=== PATIENT | female | born 1955 | race Caucasian/White ===

== ENCOUNTER → 2017-03-16 | Outpatient (CLI) | payer OTHER | LOC: MC.RAD 10:59 | DX: Z12.31 Encounter for screening mammogram for malignant neoplasm of breast (principal) ==

== ENCOUNTER → 2017-08-02 | Outpatient (CLI) | payer BC, OTHER | LOC: COL.RAD 07:41 | DX: K21.9 Gastro-esophageal reflux disease without esophagitis (principal); K22.4 Dyskinesia of esophagus; K44.9 Diaphragmatic hernia without obstruction or gangrene ==

== ENCOUNTER → 2018-04-29 | Outpatient (CLI) | payer BC | LOC: MC.RAD 08:00 | DX: Z12.31 Encounter for screening mammogram for malignant neoplasm of breast (principal) ==

== ENCOUNTER → 2018-07-17 | Outpatient (CLI) | payer BC | LOC: COL.RAD 09:32 | DX: G93.9 Disorder of brain, unspecified (principal) | CPT/HCPCS: A9585 ==

== ENCOUNTER → 2019-05-06 | Outpatient (CLI) | payer BC | LOC: MC.RAD 08:43 | DX: Z12.31 Encounter for screening mammogram for malignant neoplasm of breast (principal) ==

== ENCOUNTER → 2020-01-12 | Outpatient (CLI) | payer BC | LOC: COL.RAD 11:54 | DX: D32.9 Benign neoplasm of meninges, unspecified (principal); R90.82 White matter disease, unspecified | CPT/HCPCS: A9585 ==

== ENCOUNTER → 2020-05-31 | Outpatient (CLI) | payer BC | LOC: MC.RAD 05-07 14:00 | DX: Z12.31 Encounter for screening mammogram for malignant neoplasm of breast (principal) ==

== ENCOUNTER → 2021-06-09 | Outpatient (CLI) | payer BC | LOC: MC.RAD 08:49 | DX: Z12.31 Encounter for screening mammogram for malignant neoplasm of breast (principal) ==

== ENCOUNTER → 2023-06-14 | Outpatient (CLI) | payer MEDICARE | LOC: MC.RAD 09:07 | DX: Z12.31 Encounter for screening mammogram for malignant neoplasm of breast (principal) ==

== ENCOUNTER → 2023-09-21 | Emergency (ER) | payer MEDICARE ==
[~2023-09-21] VITALS: Ht 154.9 cm; Wt 69.1 kg
[2023-09-21 16:08] VITALS: BP 130/78; TEMP 98.1
[2023-09-21 16:58] VITALS: PULSE 73
== END ==
LOC: COL.ER 16:03
DX: S93.401A Sprain of unspecified ligament of right ankle, initial encounter (principal); W18.30XA Fall on same level, unspecified, initial encounter; X50.1XXA Overexertion from prolonged static or awkward postures, initial encounter; Y92.410 Unspecified street and highway as the place of occurrence of the external cause

== ENCOUNTER → 2024-06-16 | Outpatient (CLI) | payer MEDICARE | LOC: MC.RAD 10:11 | DX: Z12.31 Encounter for screening mammogram for malignant neoplasm of breast (principal) ==